=== PATIENT | female | born 1955 | race Caucasian/White ===

== ENCOUNTER → 2024-05-29 | Outpatient (CLI) | payer MEDICARE, OTHER, SELFPAY ==
[2024-05-29 16:44] LABS: Alanine Aminotransferase 16 U/L (10-49); Albumin, Serum 4.5 gm/dL (3.4-4.8); Albumin/Globulin Ratio 1.7 (1.2-2.2); Alkaline Phosphatase 84 U/L (46-116); Anion Gap 9 (7-16); Aspartate Amino Transferase 17 U/L (0-34); BUN/Creatinine Ratio 17 Ratio (12-20); Bilirubin,Total 0.3 mg/dL (0.3-1.2); Blood Urea Nitrogen 15 mg/dL (9-23); Calcium 9.2 mg/dL (8.3-10.6); Calcium (Corrected) 9.2 mg/dL (8.5-10.1); Carbon Dioxide 27.2 mMol/L (20.0-31.0); Chloride 104 mMol/L (98-107); Creatinine (Component) 0.9 mg/dL (0.6-1.3); Globulin 2.6 gm/dL (2.3-3.5); Glucose 111 mg/dL (74-106); Osmolality,Calculated 281 (275-295); Potassium 3.5 mMol/L (3.4-5.1); Sodium 140 mMol/L (136-145); Total Protein 7.1 gm/dL (5.7-8.2); eGFR > 60 See Note
== END | disposition home or self-care (01) ==
LOC: COPL 15:26
PROVIDERS: PCP Family Medicine; Referring Provider Family Medicine; Visit Provider Family Medicine
DX: B35.1 Tinea unguium (principal)
CPT/HCPCS: 36415; 80053

== ENCOUNTER → 2024-08-22 | Outpatient (CLI) | payer MEDICARE, OTHER, SELFPAY | END | disposition home or self-care (01) | LOC: COPL 11:09 | PROVIDERS: PCP Family Medicine; Referring Provider Family Medicine; Visit Provider Family Medicine | DX: I10 Essential (primary) hypertension (principal); E66.09 Other obesity due to excess calories | CPT/HCPCS: 83036 ==

== ENCOUNTER 2024-09-30 09:50 | Emergency (ER) | payer MEDICARE, OTHER, SELFPAY ==
[2024-09-30 09:50] VITALS: BMI 37.1
[2024-09-30 10:03] VITALS: BP 166/80; PULSE 84; RESP 19; TEMP 36.4; O2SAT 96; BMI 33.0
--- NOTE | 2024-09-30 10:39 | PD.EDRME ---
Rapid Medical Screening Exam [facility] Arrival date/time: 09/30/24 09:50 Chief Complaint: Back Pain/Injury Time Seen by Provider: 09/30/24 10:19 Vital signs: Vital Signs Temperature 97.6 F 09/30/24 10:03 Pulse Rate 84 09/30/24 10:03 Respiratory Rate 19 09/30/24 10:03 Blood Pressure 166/80 H 09/30/24 10:03 Pulse Oximetry (%) 96 09/30/24 10:03 Oxygen Delivery Method Room Air 09/30/24 10:03 [facility] Narrative: 68-year-old female with no prior history of sciatica here for low back pain that radiates to her buttocks. States it started yesterday when she went to sit on the toilet. No loss of bowel or bladder control. No history of IV drug use. No fever. No burning with urination but states does not know where her kidneys are but was worried it might be her kidneys. No history of kidney stones or recurrent UTIs
--- NOTE | 2024-09-30 10:40 | XR_ITS ---
Examination: Lumbar spine 3 views Technique: AP lateral coned lateral lower lumbar spine 3 views Exam date and time: September 30, 2024 1047 hrs. Comparison August 20, 2016 Indications: Sudden onset lower back pain beginning 2 days ago. Findings: Lumbar dextroscoliosis 8 degrees No acute lumbar fracture Moderate lumbar spondylosis Mild to moderate diffuse lumbar disc narrowing most prominent at L5-S1 No spondylolisthesis Impression: Mild to moderate diffuse lumbar degenerative disc disease, most prominent at L5-S1 No acute lumbar fracture
[2024-09-30] MEDS: HYDROcodone/APAP 5/325 TABLET 1 TAB PO (11:19)
[2024-09-30] MEDS: KETOROLAC INJ 60 MG/2 ML VIAL 30 MG IM (11:22)
[2024-09-30 13:50] LABS: Bacteria,Urine Rare; Bilirubin,Urine Negative (Negative); Blood,Urine Negative (Negative); Clarity,Urine Clear (Clear/Hazy); Collection Type, Urine Clean Catch; Color,Urine Yellow (Lt Yel-Yel); Glucose, Urine Negative (Negative); Ketones,Urine Negative (Negative); Leukocyte Esterase,Urine Positive (Negative); Nitrite,Urine Negative (Negative); Protein,Urine Trace (Neg - Trace); RBC,Urine 1 /hpf (0-3); Specific Gravity,Urine 1.027 (1.001-1.035); Squamous Epithelial Cell,Urine 3 /hpf (0-5); Urobilinogen,Urine Negative mg/dL (0.0-1.0); WBC,Urine 2 /hpf (0-5)
[2024-09-30 14:46] VITALS: BP 191/86; PULSE 68; RESP 14; TEMP 36.6; O2SAT 99
--- NOTE | 2024-09-30 14:49 | PC.NURSE ---
patient brought in by spouse for sever back pain. the pain started yesterday while going to the restroom. reporting sharp pain in lower back.
[2024-09-30 16:06] VITALS: BP 145/66; PULSE 67; RESP 16; TEMP 36.3; O2SAT 98
--- NOTE | 2024-09-30 16:18 | PD.EDBACK ---
ED Back Injury Pain RME/HPI General Chief Complaint: Back Pain/Injury Stated Complaint: LOWER BACK PAIN SINCE YEST Time Seen by Provider: 09/30/24 10:19 Arrival date/time: 09/30/24 09:50 Very pleasant 68-year-old female presents with a 2-day history of low back pain. She states she has been doing some heavy yard work and home repairs recently. On she was weed eating as well as bending over to pick weeds. Prior to that she has been up on a ladder painting her house and doing heavy spring cleaning. Yesterday she bent over to sit on the toilet and experienced a sharp pain in her central lumbar spine area. She denies any radiation of pain down into her buttocks or legs. She denies any numbness, tingling, or weakness to her lower extremities. She denies any recent illness with fever, chills, upper respiratory complaints, nausea, vomiting, diarrhea or abdominal pain. She denies any dysuria or frequency however she does have a history of renal calculi. She used a heating pad at home which has been helpful. The pain is exacerbated by moving around and relieved by laying flat on a heating pad. Mode of arrival: ambulatory Limitations: no limitations RME / HPI RME / HPI Narrative: 68-year-old female with no prior history of sciatica here for low back pain that radiates to her buttocks. States it started yesterday when she went to sit on the toilet. No loss of bowel or bladder control. No history of IV drug use. No fever. No burning with urination but states does not know where her kidneys are but was worried it might be her kidneys. No history of kidney stones or recurrent UTIs MD Complaint: back pain Onset (ago): day(s) (2) Duration: intermittent (With movement) Similar Symptoms Previously: No Location: lumbar spine Severity: moderate Radiation: none Relieving factors: supine and other (Heating pad) Exacerbating factors: movement Treatments prior to arrival: heat therapy Related Data Previous Rx's ?Medication ?Instructions ?Recorded cyclobenzaprine 5 mg tablet 5 mg PO Q8H #20 tabs 10/01/24 hydrocodone 5 mg-acetaminophen 325 1 tab PO Q8H PRN pain #20 tabs 10/01/24 mg tablet ibuprofen 600 mg tablet 600 mg PO TID PRN pain #20 tabs 10/01/24 Allergies Allergy/AdvReac Type Severity Reaction Status Date / Time Sulfa (Sulfonamide Allergy Mild Rash Verified 09/30/24 09:52 Antibiotics) Review of Systems Review of Systems Systems Reviewed: All systems reviewed, normal except as documented Past Medical History Past Medical History CARDIAC: Positive Hypertension; Negative Congestive Heart Failure RESPIRATORY: Negative Chronic Obstructive Pulmonary Disease (COPD) GENITOURINARY: Negative Renal Disease ENDOCRINE: Negative Diabetes Mellitus Type 1 or Diabetes Mellitus Type 2 Surgical History SURGICAL: Positive Hysterectomy Social History SMOKING STATUS: Never smoker ED Exam Narrative Physical exam: 68-year-old female with low back pain after heavy home repairs and gardening. She is very pleasant, alert and oriented, nontoxic-appearing, General Limitations: Present no limitations General appearance: Present alert and in no apparent distress Head Head exam: Present atraumatic and normocephalic Eye Eye exam: Present normal appearance; Absent scleral icterus or conjunctival injection ENT ENT exam: Present normal exam Neck Neck exam: Present normal inspection Chest Chest inspection: Present normal inspection Respiratory Respiratory exam: Absent respiratory distress Cardiovascular Cardiovascular exam: Present regular rate and normal rhythm Abdominal Exam Abdominal exam: Present soft; Absent distention, tenderness, guarding or rebound Extremities Exam Extremities exam: Present normal inspection and full ROM; Absent tenderness or pedal edema Expanded Lower Extremity Exam Hip/Pelvis exam: Present normal inspection and full ROM Back Exam Back exam: Present full ROM, tenderness, sciatic notch tenderness (R) (Minimal) and sciatic notch tenderness (L) (Minimal); Absent CVA tenderness (R), CVA tenderness (L), straight leg raise (R) or straight leg raise (L) Neurological Exam Neurological exam: Present alert, oriented X3 and reflexes normal; Absent motor sensory deficit Expanded Neurological Exam Motor strength - LLE: 5/5 Motor strength - RLE: 5/5 (Equal pedal push/pull.) Psychiatric Psychiatric exam: Present normal affect and normal mood Skin Skin exam: Present warm, dry, intact and normal color Course Course Course Narrative: Very pleasant 68-year-old female presents with a 2-day history of low back pain. She states she has been doing some heavy yard work and home repairs recently. On she was weed eating as well as bending over to pick weeds. Prior to that she has been up on a ladder painting her house and doing heavy spring cleaning. Yesterday she bent over to sit on the toilet and experienced a sharp pain in her central lumbar spine area. She denies any radiation of pain down into her buttocks or legs. She denies any numbness, tingling, or weakness to her lower extremities. She denies any recent illness with fever, chills, upper respiratory complaints, nausea, vomiting, diarrhea or abdominal pain. She denies any dysuria or frequency however she does have a history of renal calculi. She used a heating pad at home which has been helpful. The pain is exacerbated by moving around and relieved by laying flat on a heating pad. She was given Toradol 30mg IM, Hydrocodone 5mg PO, and Valium 10mg PO. Quality Measures none Orders Category Date Time Status XR lumbar spine 2-3V Stat Exams 09/30/24 10:40 Completed UA [Urinalysis] Stat Lab 09/30/24 12:20 Completed Diazepam [Valium] Med 09/30/24 16:38 Discontinued 10 mg PO X1 ONE HYDROcodone*/APAP 5/325 [Rittman 5/325] Med 09/30/24 10:41 Discontinued 1 tab PO X1 ONE Ketorolac Inj [Toradol Inj] Med 09/30/24 10:41 Discontinued 30 mg IM X1 ONE Vital Signs Vital signs: Vital Signs Temperature 97.6 F 09/30/24 10:03 Pulse Rate 84 09/30/24 10:03 Respiratory Rate 19 09/30/24 10:03 Blood Pressure 166/80 H 09/30/24 10:03 Pulse Oximetry (%) 96 09/30/24 10:03 Oxygen Delivery Method Room Air 09/30/24 10:03 Back Pain / Injury MDM Narrative MDM Narrative:: Very pleasant 68-year-old female presents with a 2-day history of low back pain. She states she has been doing some heavy yard work and home repairs recently. On she was weed eating as well as bending over to pick weeds. Prior to that she has been up on a ladder painting her house and doing heavy spring cleaning. Yesterday she bent over to sit on the toilet and experienced a sharp pain in her central lumbar spine area. She denies any radiation of pain down into her buttocks or legs. She denies any numbness, tingling, or weakness to her lower extremities. She denies any recent illness with fever, chills, upper respiratory complaints, nausea, vomiting, diarrhea or abdominal pain. She denies any dysuria or frequency however she does have a history of renal calculi. She used a heating pad at home which has been helpful. The pain is exacerbated by moving around and relieved by laying flat on a heating pad. She was given Toradol 30mg IM, Hydrocodone 5mg PO, and Valium 10mg PO. Patient data External records reviewed:: None Clinical information provided by:: patient Social determinants that could affect healthcare access:: none Patient has the following chronic illnesses:: N/A How is presenting disease/condition affected by chronic disease/condition?: no chronic disease Evaluation data The following diagnostics were reviewed and interpreted by me:: radiology exam(s) Lab and/or radiology exams considered but not ordered:: N/A Interpretation Summary: Lumbar Spine X-ray: Findings: Lumbar dextroscoliosis 8 degrees. No acute lumbar fracture. Moderate lumbar spondylosis. Mild to moderate diffuse lumbar disc narrowing most prominent at L5-S1. No spondylolisthesis. Impression: Mild to moderate diffuse lumbar degenerative disc disease, most prominent at L5-S1. No acute lumbar fracture Medications / Prescriptions Medications or Prescriptions considered but not ordered:: N/A Medication administrations:: Medication Administration History Discontinued Medications Hydrocodone Bitart/Acetaminophen (Hydrocodone/Apap 5/325 Tablet) 1 tab PO X1 ONE Stop: 09/30/24 10:42 Last Admin: 09/30/24 11:19 Dose: 1 tab Documented By: KARIME Diazepam (Diazepam 5 Mg Tablet) 10 mg PO X1 ONE Stop: 09/30/24 16:39 Last Admin: 09/30/24 16:50 Dose: 10 mg Documented By: WICHO Ketorolac Tromethamine (Ketorolac Inj 60 Mg/2 Ml Vial) 30 mg IM X1 ONE Stop: 09/30/24 10:42 Last Admin: 09/30/24 11:22 Dose: 30 mg Documented By: KARIME Toradol 30mg IM, Rittman 5mg PO, Valium 10mg PO. Consultations Consultation(s) initiated? (list below): No Diagnosis Differential diagnosis back pain/injury: lumbar radiculopathy, sciatica and strain of lumbar region Most likely diagnosis given after review of the tests above:: Strain of Lumbar Region Admission Indicated Admission indicated?: not indicated Explain why admission is indicated or not indicated:: Patient is stable for discharge Admission Request Was there a request for admission?: No Disposition Plan Disposition Plan: Discharge Discharge Attestation Discharge Attestation: The patient and all family members were given an opportunity to ask questions and understood the discharge instructions. Discharge instructions specifically effects, indications for sooner follow up or return to the emergency department, and the expected course of current diagnosis. Patient condition: Stable Discharge Plan Plan Patient Disposition: HOME (Self Care) Discharge Disposition comment: Stable and Improved Prescriptions/Referrals Prescriptions/Med Rec: New cyclobenzaprine 5 mg tablet 5 mg PO Q8H Qty: 20 0RF hydrocodone-acetaminophen 5-325 mg tablet 1 tab PO Q8H MDD 6 PRN (Reason: pain) Qty: 20 0RF ibuprofen 600 mg tablet 600 mg PO TID PRN (Reason: pain) Qty: 20 0RF Referrals: Morris Garrett MD [Primary Care Provider] - In 1 week Problem List Clinical Impression: Strain of lumbar region Patient/Caregiver Discharge Instructions Education Materials: Understanding Lumbosacral Strain, Lumbar Extension (Flexibility), Lumbar Flexion (Flexibility), Lumbar Stretch (Flexibility), ED Back Sprain/Strain Additional Instructions: Follow-up with your primary care physician in 24 to 48 hours. Return to the ED for any new or worsening symptoms. Print Language: Montenegrin Stand Alone Forms: Lynn Award Info., Patient Portal Info Letter PA/MEAGHAN Supervising Physician NICOLE/MEAGHAN Supervising Physician: Dr. Davis
[2024-09-30] MEDS: DIAZEPAM 5 MG TABLET 10 MG PO (16:50)
[2024-09-30 16:57] VITALS: BP 124/66; PULSE 64; RESP 18; O2SAT 96
--- NOTE | 2024-10-01 10:55 | PC.NURSE ---
PT HAD CALLED 3 TIMES DUE TO PRESCRIPTION FROM 09/30/24 NOT BEING AT THE PHARMACY. INFORMED PT THAT NURSE WILL LOOK INTO THE PROBLEM BUT THAT THE PROVIDER WHO ORDERED THE MEDICATION IS NOT WORKING TODAY AND IT WILL BE AT THE DISCRESSION OF THE MD IF HE WILL ORDER THE MEDICATION. GOT PT'S PHONE NUMBER AND TOLD PATIENT THAT NURSE WILL CALL HER BACK. CALLED [facility] IN [place] TO CONFIRM THEY DID NOT RECEIVED VALIUM PRESCRIPTION AND THEY STATES THEY DID NOT. SPOKE WITH DR. WEBER WHO DISCONTINUED VALIUM AND PRESCRIBED 3 OTHER MEDICATIONS FOR THE PT. CALLED [facility] TO CONFIRM RECEIPT OF THE PRESCRIPTIONS AND TOLD THAT ALL 3 HAVE ARRIVED.
--- NOTE | 2024-10-01 11:05 | PC.NURSE ---
CALLED PT TO INFORM HER THAT MD ORDERED 3 NEW PRESCRIPTIONS AND THAT THE PHARMACY HAS RECEIVED THEM
== END 2024-09-30 16:58 | disposition home or self-care (01) ==
PROVIDERS: Physician Assistant; Emergency Provider Emergency Medicine; PCP Family Medicine
DX: S39.012A Strain of muscle, fascia and tendon of lower back, initial encounter (principal); M51.370 Other intervertebral disc degeneration, lumbosacral region with discogenic back pain only; M47.816 Spondylosis without myelopathy or radiculopathy, lumbar region; M41.9 Scoliosis, unspecified; M48.07 Spinal stenosis, lumbosacral region; X58.XXXA Exposure to other specified factors, initial encounter; Y93.H2 Activity, gardening and landscaping; Y92.008 Other place in unspecified non-institutional (private) residence as the place of occurrence of the external cause
CPT/HCPCS: 72100; 81001; 96372; 99283; J1885; A9270

== ENCOUNTER 2024-11-26 09:46 | Emergency (ER) | payer MEDICARE, OTHER, SELFPAY ==
[2024-11-26 09:47] VITALS: BMI 35.5
--- NOTE | 2024-11-26 09:51 | EKG_ITS ---
[facility] Test Date: 2024-11-26 Pat Name: KAUSHIK MONAHAN Department: Room: - Gender: Female Process Consultant: : 1955 Requested By: Elvis Davis Order Number: [id number] Reading MD: Elvis Davis Measurements Intervals [place] Rate: 75 P: 3 AL: 144 QRS: -18 QRSD: 95 T: 15 QT: 382 QTc: 428 Interpretive Statements SINUS RHYTHM MINIMAL VOLTAGE CRITERIA FOR LVH, CONSIDER NORMAL VARIANT [MEETS CRITERIA IN ONE OF: R(aVL), S(V1), R(V5), R(V5/V6)+S(V1)] MODERATE ST DEPRESSION [0.05+ mV ST DEPRESSION] No previous ECG available for comparison /store/S0/[id number].pdf
[2024-11-26 10:06] VITALS: BP 158/89; BP 166/79; PULSE 71; PULSE 73; RESP 14; TEMP 36.7; O2SAT 96
--- NOTE | 2024-11-26 10:24 | XR_ITS ---
Examination: AP chest single view TECHNIQUE: AP portable semiupright chest single view Date and time: November 26, 2024 1033 hours INDICATIONS: Posterior shoulder pain today FINDINGS: Normal heart size No pneumonia or pulmonary edema. No pneumothorax Clavicles bones of the shoulders ribs appear intact IMPRESSION: No active disease
--- NOTE | 2024-11-26 10:33 | PD.EDCHEST ---
ED Chest Pain RME/HPI General Chief Complaint: Chest Pain Stated Complaint: SHARP PAIN TO UPPER LEFT SIDE OF BACK Time Seen by Provider: 11/26/24 10:16 Arrival date/time: 11/26/24 09:46 RME / HPI RME / HPI narrative: 69 year old female who is right-hand dominant with history of hypertension presents to the ED for sudden onset of left upper back and chest pain approximately 20 minutes [employer] while laying in bed watching a movie. Pain described as sharp stabbing in sensation, rating as severe, that is aggravated with movements/walking/deep inspiration. Patient mentioned she is a side sleeper and did not have any pain last night. Denies recent injury/trauma/heavy lifting. Denies taking pain medications at home. Denies rash, fevers, shortness of breath. No history of similar pain. Patient mentioned she began coughing 1 week ago and was taking Dayquil and Nyquil. States she has noticed her cough improving. Patient denies smoking or history of smoking. Related Data Home Medications ?Medication ?Instructions ?Recorded ?Confirmed amlodipine 5 mg tablet mg 11/26/24 losartan 100 mg tablet mg 11/26/24 Allergies Allergy/AdvReac Type Severity Reaction Status Date / Time Sulfa (Sulfonamide Allergy Mild Rash Verified 11/26/24 09:49 Antibiotics) Review of Systems Review of Systems Narrative Review of Systems: Gen: No fever, no chills, no weight loss EYES: No discharge, no visual changes, no pain HEENT: No ear pain, no congestion, no sore throat PULM: no shortness of breath, no cough, no congestion CV: + chest pain, no dyspnea on exertion, no palpitations, no chest tightness GI: No nausea, no vomiting, no diarrhea, no pain, no constipation : No frequency, no urgency,? no dysuria Musc/skel: No joint pain, +left upper back pain Skin: No rash, no ecchymosis, no lesions Neuro: No weakness, no headache Past Medical History Past Medical History CARDIAC: Positive Hypertension RESPIRATORY: Negative Chronic Obstructive Pulmonary Disease (COPD) GENITOURINARY: Negative Renal Disease ENDOCRINE: Negative Diabetes Mellitus Type 1 or Diabetes Mellitus Type 2 Surgical History SURGICAL: Positive Hysterectomy Social History SMOKING STATUS: Never smoker ED Exam Narrative Physical exam: GENERAL APPEARANCE: AxOx4, no obvious distress, nontoxic appearing HEENT: NC, AT. MMM. EOMI, clear conjunctiva, oropharynx clear. NECK: Supple without lymphadenopathy. No stiffness or restricted ROM. HEART: Normal rate and regular rhythm, normal S1/S1, no m/r/g LUNGS: CTAB, moving air well. No crackles or wheezes are heard. ABDOMEN: Soft, nontender, nondistended with good bowel sounds heard. BACK: Parathoracic spine TTP from T1-T12 on the left side. No midline C/L spine pain or deformity, No CVAT, no obvious deformity. EXTREMITIES: Without cyanosis, clubbing or edema. MUSCULOSKELETAL: FROM of all major joints, no chest tenderness NEUROLOGICAL: Grossly nonfocal. Alert and oriented, moving all 4 extremities. CN not formally tested but appear grossly intact. Skin: Warm and dry without any rash. Course Course Course Narrative: 1027: Given the sudden onset of pain, a CTA chest will be ordered. At this time pending chest xray. Quality Measures none Orders Category Date Time Status CT Screening NOW Care 11/26/24 11:52 Completed Push[employer] Peddler Q2HR Care 11/26/24 10:06 Completed EKG (ED ONLY) *Do not use* NOW Care 11/26/24 09:[address] angio chest Stat Exams 11/26/24 11:52 Completed EKG (ED Only) Stat Exams 11/26/24 09:51 Draft XR chest 1V Stat Exams 11/26/24 10:24 Completed CBC Stat Lab 11/26/24 10:45 Completed CMP [Comprehensive Metabolic Panel] Stat Lab 11/26/24 10:45 Completed Troponin I Stat Lab 11/26/24 10:45 Completed Aspirin Med 11/26/24 10:24 Discontinued 325 mg PO X1 ONE Ketorolac Inj [Toradol Inj] Med 11/26/24 10:24 Discontinued 15 mg IVP X1 ONE Morphine Inj Med 11/26/24 13:39 Discontinued 4 mg IVP X1 ONE Reevaluation(s) Reevaluation #1: Patient reports she had been feeling more tired lately and resting. At baseline she is able to walk more frequently. Vital signs have remained stable through ED course. Discussed bilateral thyroid nodule finding on chest CTA and advised at this time there is no need for thyroid check. However, advised to follow up with PCP for further evaluation. Patient is in agreement with plan. Time: 13:10 Vital Signs Vital signs: Vital Signs Temperature 98.1 F 06/01/25 10:06 Pulse Rate 71 11/26/24 10:06 Respiratory Rate 14 11/26/24 10:06 Blood Pressure 166/79 H 11/26/24 10:06 Pulse Oximetry (%) 96 11/26/24 10:06 Oxygen Delivery Method Room Air 11/26/24 10:06 Pulse ox is 96% on room air which is adequate. Chest Pain MDM Narrative MDM Narrative:: Nicol Tomas am scribing for and in the presence of Dr. Davis. 69 year old right-hand dominant female with a history of hypertension presents with acute onset of left upper back and chest pain that began approximately 20 minutes prior to arrival while lying in bed. No history of recent trauma, injury, or heavy lifting. No similar episodes in the past. Denies shortness of breath, fever, or rash. Patient reports a cough that began one week ago and has been improving with OTC medications. On examination, she has parathoracic tenderness from T1?T12. Lungs are clear to auscultation. Vital signs have remained stable throughout her ED course. Chest CTA was performed to rule out pulmonary embolism and revealed no acute PE. Incidental finding of bilateral thyroid nodules was noted. Patient was reassured that no urgent intervention is needed but advised to follow up with her PCP for further evaluation. She is in agreement with the plan and stable for discharge at this time. Patient data External records reviewed:: [facility] previous records (I reviewed ED visit on 09/30/2024 ) Clinical information provided by:: patient Social determinants that could affect healthcare access:: none Patient has the following chronic illnesses:: Hypertension How is presenting disease/condition affected by chronic disease/condition?: uneffected by Evaluation data The following diagnostics were reviewed and interpreted by me:: lab results, radiology exam(s) and EKG tracing(s) (EKG 11/26/2024 @ 10:01 AM. Sinus rhythm, rate 75, normal axis, normal interval, no acute ST or T-wave changes, no STEMI. ) Lab and/or radiology exams considered but not ordered:: None Interpretation Summary: Ordering Physician: Elvis Davis MD Date of Service: 11/26/24 Procedure(s): XR chest 1V Accession Number(s): [id number] cc: Elvis Davis MD; Juan Pablo Alexander MD~ Examination: AP chest single view TECHNIQUE: AP portable semiupright chest single view Date and time: November 26, 2024 1033 hours INDICATIONS: Posterior shoulder pain today FINDINGS: Normal heart size No pneumonia or pulmonary edema. No pneumothorax Clavicles bones of the shoulders ribs appear intact IMPRESSION: No active disease Dictated By:Juan Pablo Alexander MD Signed By:<Electronically signed by Juan Pablo Alexander MD in [place]>11/26/24 1102 Ordering Physician: Elvis Davis MD Date of Service: 11/26/24 Procedure(s): CT angio chest Accession Number(s): [id number] cc: Elvis Davis MD; Juan Pablo Alexander MD; Morris Garrett MD~ Examination: CTA chest with intravenous contrast 2-D reconstructions 3-D reconstructions, vascular Date and time of exam: November 26, 2024 1222 hours INDICATIONS: Chest pain. Beginning this morning CTDI: vol (mGy) 18.3 DLP: (mGycm) 396 Technique: Multiple axial sections of the thorax have been obtained. 3 mm slice thickness, from below the hemidiaphragms to above the apices of the lungs. Mediastinal and lung density settings have been obtained. 2-D sagittal and coronal reconstructions. 3-D angiographic renderings, 3-D volume renderings, 3D post processing, vascular maximum intensity projections obtained. Contrast administered is 100 cc Isovue-370. Low dose protocols were performed. One or more of the following dose reduction techniques were used; automated exposure control, adjustment of the mA and/or KV according to patient size, use of iterative reconstruction technique. Findings: Bilateral thyroid nodules, the largest right lobe 17 mm No thoracic aortic aneurysm dilatation or dissection Pulmonary artery segments are not enlarged. No pulmonary artery filling defects Moderate vascular congestion No lobar pneumonia No pulmonary edema No visualized liver or splenic lesion Absent gallbladder No biliary tract dilatation No pancreatic mass Kidneys partially visualized no hydronephrosis Moderate osteopenia IMPRESSION: Negative for pulmonary artery emboli No pneumonia or pulmonary edema Dictated By:Juan Pablo Alexander MD Signed By:<Electronically signed by Juan Pablo Alexander MD in OV>11/26/24 1232 Medications / Prescriptions Medications or Prescriptions considered but not ordered:: None Medication administrations:: Medication Administration History Discontinued Medications Aspirin (Aspirin 325 Mg Tablet) 325 mg PO X1 ONE Stop: 11/26/24 10:25 Last Admin: 11/26/24 10:57 Dose: 325 mg Documented By: RD Ketorolac Tromethamine (Ketorolac Inj 30 Mg/Ml Vial) 15 mg IVP X1 ONE Stop: 11/26/24 10:25 Last Admin: 11/26/24 10:57 Dose: 15 mg Documented By: CHARLES Morphine Sulfate (Morphine Sulf Inj 10 Mg/Ml Vial) 4 mg IVP X1 ONE Stop: 11/26/24 13:40 Last Admin: 11/26/24 13:44 Dose: 4 mg Documented By: CHARLES See above Consultations Consultation(s) initiated? (list below): No Diagnosis Most likely diagnosis given after review of the tests above:: Musculoskeletal back pain Thyroid nodule Admission Indicated Admission indicated?: not indicated Admission Request Was there a request for admission?: No Disposition Plan Disposition Plan: Discharge Discharge Attestation Discharge Attestation: The patient and all family members were given an opportunity to ask questions and understood the discharge instructions. Discharge instructions specifically effects, indications for sooner follow up or return to the emergency department, and the expected course of current diagnosis. Patient condition: Stable Discharge Plan Plan Patient Disposition: HOME (Self Care) Patient condition on transfer: Stable Prescriptions/Referrals Prescriptions/Med Rec: No Action amlodipine 5 mg tablet Patient Comments: take 1 tablet by mouth once daily losartan 100 mg tablet Patient Comments: take 1 tablet by mouth once daily Referrals: Morris Garrett MD [Primary Care Provider] - In 1 week Problem List Clinical Impression: Musculoskeletal back pain, Thyroid nodule greater than or equal to 1.5 cm in diameter incidentally noted on imaging study Patient/Caregiver Discharge Instructions Education Materials: The Role of the Thyroid Gland, ED Back Pain (Acute or Chronic) Additional Instructions: Follow-up with your primary care doctor for possible further testing on your thyroid. It would be useful to go for a gentle walk every morning, drink plenty of fluids. Feel free return to the emergency department sooner if symptoms worsen or if you notice any new, concerning issues. Print Language: Prydeinig Stand Alone Forms: Lynn Award Info., Patient Portal Info Letter
[2024-11-26 10:42] VITALS: PULSE 70; RESP 14; O2SAT 98
[2024-11-26] MEDS: KETOROLAC INJ 30 MG/ML VIAL 15 MG IVP (10:57)
[2024-11-26] MEDS: Aspirin 325 MG TABLET PO (10:57)
[2024-11-26 11:02] LABS: Basophils % (Auto) 1 % (0-2.5); Eosinophils # (Auto) 0.2 Thou/mm3 (0.0-0.5); Eosinophils % (Auto) 3 % (0-10); Hematocrit 37.4 % (36.0-46.0); Hemoglobin 13.6 g/dL (12.0-16.0); Immature Granulocytes % (Auto) 1 % (0-0); Immature Granulocytes Auto 0.03 Thou/mm3 (0.00-0.00); Lymphocytes # (Auto) 2.1 Thou/mm3 (1.0-4.8); Lymphocytes % (Auto) 41 % (10-50); Mean Corpuscular HGB Conc 36.4 g/dl (31.0-37.0); Mean Corpuscular Hemoglobin 31.5 pg (25.0-35.0); Mean Corpuscular Volume 87 fL (80-100); Monocytes # (Auto) 0.5 Thou/mm3 (0.0-0.8); Monocytes % (Auto) 10 % (0-12); Neutrophils # (Auto) 2.2 Thou/mm3 (1.8-7.7); Neutrophils % (Auto) 44 % (37-80); Nucleated Red Blood Cell % 0 /100 WBC (0); Platelet Count 256 Thou/mm3 (140-440); Red Blood Count 4.32 Miln/mm3 (4.00-5.20); White Blood Count 5.1 Thou/mm3 (3.6-11.0)
[2024-11-26 11:04] VITALS: BP 146/84; PULSE 72; RESP 17; TEMP 36.5; O2SAT 97
[2024-11-26 11:22] LABS: Alanine Aminotransferase 30 U/L (10-49); Albumin, Serum 4.6 gm/dL (3.4-4.8); Albumin/Globulin Ratio 1.8 (1.2-2.2); Alkaline Phosphatase 71 U/L (46-116); Anion Gap 12 (7-16); Aspartate Amino Transferase 28 U/L (0-34); BUN/Creatinine Ratio 23 Ratio (12-20); Bilirubin,Total 0.6 mg/dL (0.3-1.2); Blood Urea Nitrogen 18 mg/dL (9-23); Calcium 8.8 mg/dL (8.3-10.6); Calcium (Corrected) 8.8 mg/dL (8.5-10.1); Chloride 103 mMol/L (98-107); Creatinine (Component) 0.8 mg/dL (0.6-1.3); Estimated Creatinine Clearance 81.3 mL/min (>60); Globulin 2.5 gm/dL (2.3-3.5); Glucose 103 mg/dL (74-106); Osmolality,Calculated 283 (275-295); Potassium 3.2 mMol/L (3.4-5.1); Sodium 141 mMol/L (136-145); Total Protein 7.1 gm/dL (5.7-8.2); Troponin I < 0.020 ng/mL (0.0-0.045); eGFR > 60 See Note
--- NOTE | 2024-11-26 11:52 | XR_ITS ---
Examination: CTA chest with intravenous contrast 2-D reconstructions 3-D reconstructions, vascular Date and time of exam: November 26, 2024 1222 hours INDICATIONS: Chest pain. Beginning this morning CTDI: vol (mGy) 18.3 DLP: (mGycm) 396 Technique: Multiple axial sections of the thorax have been obtained. 3 mm slice thickness, from below the hemidiaphragms to above the apices of the lungs. Mediastinal and lung density settings have been obtained. 2-D sagittal and coronal reconstructions. 3-D angiographic renderings, 3-D volume renderings, 3D post processing, vascular maximum intensity projections obtained. Contrast administered is 100 cc Isovue-370. Low dose protocols were performed. One or more of the following dose reduction techniques were used; automated exposure control, adjustment of the mA and/or KV according to patient size, use of iterative reconstruction technique. Findings: Bilateral thyroid nodules, the largest right lobe 17 mm No thoracic aortic aneurysm dilatation or dissection Pulmonary artery segments are not enlarged. No pulmonary artery filling defects Moderate vascular congestion No lobar pneumonia No pulmonary edema No visualized liver or splenic lesion Absent gallbladder No biliary tract dilatation No pancreatic mass Kidneys partially visualized no hydronephrosis Moderate osteopenia IMPRESSION: Negative for pulmonary artery emboli No pneumonia or pulmonary edema
[2024-11-26 13:32] VITALS: BP 141/74; PULSE 74; RESP 18; TEMP 36.9; O2SAT 93
[2024-11-26] MEDS: MORPHINE SULF INJ 10 MG/ML VIAL 4 MG IVP (13:44)
== END 2024-11-26 13:58 | disposition home or self-care (01) ==
PROVIDERS: Emergency Provider Emergency Medicine; PCP Family Medicine
DX: M54.9 Dorsalgia, unspecified (principal); E04.1 Nontoxic single thyroid nodule; R07.9 Chest pain, unspecified
CPT/HCPCS: 36415; 71045; 71275; 80053; 84484; 85025; 93005; 96374; 96375; 99285; A4649; J1885; J2270; Q9967; A9270

== ENCOUNTER → 2024-12-05 | Outpatient (CLI) | payer MEDICARE, OTHER, SELFPAY ==
[2024-12-05 16:50] LABS: Free T3 2.8 pg/mL (2.3-4.2); Free T4 (Free Thyroxine) 1.33 ng/dL (0.89-1.76); Thyroid Stimulating Hormone 0.88 uIU/mL (0.55-4.78)
[2024-12-11 07:12] LABS: Thyroid Peroxidase Antibodies* 3 IU/mL (<9)
== END | disposition home or self-care (01) ==
LOC: COPL 14:12
PROVIDERS: PCP Family Medicine; Referring Provider Registered Nurse; Visit Provider Registered Nurse
DX: D44.0 Neoplasm of uncertain behavior of thyroid gland (principal)
CPT/HCPCS: 36415; 84439; 84443; 84481; 86376

== ENCOUNTER → 2024-12-08 | Outpatient (CLI) | payer MEDICARE, OTHER, SELFPAY ==
--- NOTE | 2024-12-08 07:15 | XR_ITS ---
Examination: Thyroid sonography complete TECHNIQUE: Pak scale sonographic images thyroid lobes Date and time: December 08, 2024 0712 hours INDICATIONS: CT examination chest November 26, 2024 bilateral thyroid nodules FINDINGS: Right thyroid 5.6 cm Complex vascular mid pole right thyroid nodule 4.0 x 2.7 cm Isthmus nodule 2.0 x 0.5 x 1.3 cm, as well as 1.0 x 0.4 x 0.7 cm Left thyroid 4.7 cm Upper pole nodule 6 x 5 mm Midpole nodule 14 x 9 x 13 mm IMPRESSION: Numerous thyroid nodules as above Consider ultrasound-guided fine-needle aspiration of the complex vascular mid pole right thyroid nodule 0.0 x 1.7 x 2.7 cm
== END | disposition home or self-care (01) ==
PROVIDERS: PCP Family Medicine; Referring Provider Registered Nurse; Visit Provider Registered Nurse
DX: E04.2 Nontoxic multinodular goiter (principal)
CPT/HCPCS: 76536

== ENCOUNTER → 2025-02-22 | Outpatient (CLI) | payer MEDICARE, OTHER, SELFPAY ==
--- NOTE | 2025-02-22 10:42 | XR_ITS ---
Examination: Foot, right, 3 views Technique: AP, oblique, lateral views foot, 3 views Date and time of exam: February 14, 2025 1044 hrs. Indications: Right foot pain beginning 2 weeks ago. 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
== END | disposition home or self-care (01) ==
LOC: CDIM 09:49
PROVIDERS: PCP Nurse Practitioner Family; Referring Provider Nurse Practitioner Family; Visit Provider Nurse Practitioner Family
DX: M19.071 Primary osteoarthritis, right ankle and foot (principal)
CPT/HCPCS: 73630